=== PATIENT | male | born 1995 | race Caucasian/White ===

== ENCOUNTER 2021-05-21 20:03 | Emergency (ER) | payer BC, MEDICAID ==
[~2021-05-21] VITALS: Ht 193 cm; Wt 127.0 kg
[~2021-05-21 20:03] MED LIST: ONDA4TAB12 PO; SODI30SP3 BOTHNARES
[2021-05-21] MEDS ORDERED: IBUP-1984 PO (21:40)
[2021-05-21] MEDS ORDERED: penicillin V potassium 500mg tablet PO ONE (21:40)
[2021-05-21] MEDS ORDERED: ketorolac tromethamine 15mg/ml inj. IM ONE (21:40)
[2021-05-21] MEDS ORDERED: PENI500T2 PO (21:40)
[2021-05-21 21:59] VITALS: BP 142/96
== END 2021-05-21 22:01 | disposition home or self-care (01) ==
LOC: ER 20:04
DX: K08.89 Other specified disorders of teeth and supporting structures (principal); F12.90 Cannabis use, unspecified, uncomplicated; Z87.442 Personal history of urinary calculi; Z72.89 Other problems related to lifestyle; Z79.2 Long term (current) use of antibiotics; Z79.899 Other long term (current) drug therapy
CPT/HCPCS: 96372; 99283; J1885

== ENCOUNTER 2022-05-22 17:16 | Emergency (ER) | payer MEDICAID ==
[~2022-05-22] VITALS: Ht 190.5 cm; Wt 122.7 kg
[2022-05-22 17:35] VITALS: BP 139/113
== END 2022-05-23 00:40 | disposition left against medical advice (07) ==
LOC: ER 17:17
DX: R45.851 Suicidal ideations (principal); Z53.21 Procedure and treatment not carried out due to patient leaving prior to being seen by health care provider
CPT/HCPCS: A6449

== ENCOUNTER 2023-03-20 11:32 | Inpatient (IN) | payer MEDICAID ==
[~2023-03-20] VITALS: Ht 190.5 cm; Wt 127.3 kg
[~2023-03-20 11:32] MED LIST changes: +BUPR-317 PO; +LORA-269 PO; -ONDA4TAB12 PO; -SODI30SP3 BOTHNARES
--- NOTE | 2023-03-20 12:56 | NUR ---
patient sitting quietly in room, was able to given urine sample, compliant with care, no distress noted.
[2023-03-20 13:24] LABS: URINE AMPHETAMINE SCREEN NEGATIVE (Neg); URINE BARBITUATE SCREEN NEGATIVE (Neg); URINE BENZODIAZEPINES SCREEN NEGATIVE (Neg); URINE CANNABINOID SCREEN NEGATIVE (Neg); URINE COCAINE SCREEN NEGATIVE (Neg); URINE METHADONE SCREEN NEGATIVE (Neg); URINE OPIATE SCREEN NEGATIVE (Neg); URINE PHENCYCLIDINE SCREEN NEGATIVE (Neg)
--- NOTE | 2023-03-20 13:40 | NUR ---
patient compliant with care, resting quietly in bed, no distress noted.
[2023-03-20 13:51] LABS: BASOPHILS % (AUTO) 0.3 % (0-1); EOSINOPHILS # (AUTO) 0.1 X10'3 (0-0.9); EOSINOPHILS % (AUTO) 1.6 % (0-6); HEMOGLOBIN 16.2 g/dl (14.0-17.9); LYMPHOCYTES # (AUTO) 1.8 X10'3 (1.1-4.8); LYMPHOCYTES % (AUTO) 23.6 % (21-51); MEAN CORPUSCULAR HEMOGLOBIN 29.2 PG (27.0-31.0); MEAN CORPUSCULAR HGB CONC 33.6 g/dL (33.0-36.5); MEAN CORPUSCULAR VOLUME 86.8 FL (78-98); MEAN PLATELET VOLUME 9.9 FL (7.4-10.4); MONOCYTES # (AUTO) 0.5 X10'3 (0-0.9); MONOCYTES % (AUTO) 7.1 % (2-12); NEUTROPHILS # (AUTO) 5.1 X10'3 (1.8-7.7); NEUTROPHILS % (AUTO) 67.4 % (42-75); PLATELET COUNT 259 X10'3 (140-440); RED BLOOD COUNT 5.53 X10'6 (4.70-6.10); RED CELL DISTRIBUTION WIDTH 14.2 % (11.5-14.5); WHITE BLOOD COUNT 7.6 X10'3 (4.5-11.0)
[2023-03-20 14:08] LABS: CLARITY,URINE CLOUDY (Clear); COLOR,URINE YELLOW (Yellow); GLUCOSE, URINE NEGATIVE (Neg); KETONES,URINE NEGATIVE (Neg); LEUKOCYTE ESTERASE ,URINE MODERATE (Neg); NITRITES, URINE POSITIVE (Neg); OCCULT BLOOD,URINE TRACE-INTACT (Neg); PROTEIN,URINE TRACE mg/dl (Neg); UROBILINOGEN,URINE 0.2 E.U/dL (0.2-1.0)
[2023-03-20 14:09] LABS: UA COLLECTION TYPE CLN CATCH MIDSTREAM
[2023-03-20 14:17] LABS: WBC,URINE TNTC /HPF (0-4)
[2023-03-20 14:18] LABS: MUCUS STRANDS MODERATE /LPF (Neg); TRANSITIONAL EPI CELLS,URINE FEW /HPF; WBC CLUMPS,URINE FEW /HPF (NEGATIVE)
[2023-03-20 14:19] LABS: BACTERIA,URINE FEW /HPF (Neg); SQUAMOUS EPITHELIAL CELL,UR MODERATE /LPF (FEW)
[2023-03-20 14:39] LABS: ALANINE AMINOTRANSFERASE 109 U/L (12-78); ALBUMIN 4.1 G/DL (3.4-5.0); ALKALINE PHOSPHATASE 80 IU/L (46-116); ANION GAP 9 (8-16); ASPARTATE AMINO TRANSFERASE 58 U/L (10-37); BILIRUBIN,TOTAL 0.4 MG/DL (0.1-1.0); BLOOD UREA NITROGEN 10 MG/DL (7-18); BUN/CREATININE RATIO 9.4 (10.0-20.0); CALCIUM 9.3 MG/DL (8.5-10.1); CHLORIDE 103 MMOL/L (99-107); CREATININE 1.06 MG/DL (0.60-1.10); ETHANOL < 0.010 GM/DL (0.0-0.010); GLUCOSE 93 MG/DL (70-104); SODIUM 139 MMOL/L (135-145); TOTAL CARBON DIOXIDE 27.4 MMOL/L (24-32); TOTAL PROTEIN 8.3 G/DL (6.4-8.2); eGFR 84 ML/MIN
[2023-03-20] MEDS ORDERED: FOSFOMYCIN TROMETHAMINE 3 GM PACKET PO ONE (14:45)
--- NOTE | 2023-03-20 14:45 | NUR ---
patient laying in bed resting quietly, no distress noted.
--- NOTE | 2023-03-20 15:00 | NUR ---
princess sent pt packet to [facility]
--- NOTE | 2023-03-20 15:33 | NUR ---
Note lakhwinder in [facility] - 03/20/23 at 1701 by JOSH Patient is discharged to [facility]. Patient is escorted by Graham Otoole RN and security. Patient compliant with care.
--- NOTE | 2023-03-20 16:01 | NUR ---
Patient received to bed 26. No s/s of distress. Patient has complaints of nasal swelling, given NACL syringe to rinse sinuses. Pt. denies current SI and plan. Thought processes are linear.
[2023-03-20] MEDS ORDERED: NO HOME MEDS PO (16:20)
[2023-03-20] MEDS ORDERED: NO HOME MEDS (16:37)
--- NOTE | 2023-03-20 17:43 | NUR ---
Patient sitting crossed legged on bed. Patient states that his sinuses are bothering him. Patient states that he is bored. T.V. turned on for patient, and patient is satisfied.
--- NOTE | 2023-03-20 19:11 | NUR ---
Client to be admitted to [facility] for SI/Self injury per ANN Teague/Judson Galicia MD. Client is admitted to #[id number].
--- NOTE | 2023-03-20 19:32 | NUR ---
one to one with the patient to assess severity of depressive symptoms and self harm risk. The patient is very depressed and stated he was first diagnoised with depression at age 9. He currently is not on any medications. He denies psychotic symptoms. He is reporting significant nasal congestion and uses Afrin at home and reports that Flonase has not helped in the past.
[2023-03-20] MEDS: oxymetazoline 15 ML nasal spray NS SCH ×2 (19:41→19:57)
--- NOTE | 2023-03-20 20:39 | NUR ---
The patient has been quietly watching TV. His father came in briefly to visit. The patient is waiting to be transferred to [facility]
--- NOTE | 2023-03-20 20:44 | NUR ---
Patient's father came and requested to visit. Registration was told he could come back for 15 minutes and no outside food or drinks or cell phones were allowed. The visitor came back with a plastic back with food and sodas and he was told that he would have to leave the bag behind the nursing station. He was irritable and rude. As he left he called staff "yoni car" and requested to have staff's names. He left the unit without any further incidence.
[2023-03-20 21:42] VITALS: BP 148/101; PULSE 71; RESP 16; TEMP 98.1; O2SAT 99
[2023-03-20 22:00] VITALS: RESP 16; O2SAT 99
[2023-03-20] MEDS ORDERED: magnesium hydroxide 30ml (MOM) UD suspension PO PRN (22:05)
[2023-03-20] MEDS ORDERED: acetaminophen 325mg tablet PO PRN ×2 (22:05)
[2023-03-20] MEDS ORDERED: mag hydrox/Alum hydrox/simeth 30ml oral suspension PO PRN (22:05)
[2023-03-20] MEDS ORDERED: NICOTINE POLACRILEX 2 MG LOZENGE BC PRN (22:05)
[2023-03-20] MEDS ORDERED: loperamide 2mg capsule PO PRN (22:05)
[2023-03-21] VITALS (7 sets, daily range): BP systolic 138–154; BP diastolic 89–110; PULSE 80–94; RESP 14–16; TEMP 97.4–98.3; O2SAT 98–100
[2023-03-21] MEDS ORDERED: OXYM30SP26 BOTHNARES (00:52)
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
[2023-03-21] MEDS: Melatonin 3mg tablet PO SCH ×2 (01:53→21:15)
--- NOTE | 2023-03-21 03:25 | NUR ---
Elevated blood pressure noted. Upon admission- BP 148/101. Around 0200- 154/108 (manual) then 0335- 150/110 noted . Patient denies s/sx. Will continue to monitor.
--- NOTE | 2023-03-21 05:50 | NUR ---
Patient reports that he relies on nasal spray to breath and asked if he can have it. Called Josep Polanco regarding patient's elevated sustained blood pressure over night as well as to ask him about nasal spray order. Received orders for lisinopril 10 mg daily (okay to give now), Claritin and Flonase.
[2023-03-21] MEDS: loratadine 10mg tablet PO SCH (06:11)
[2023-03-21] MEDS: lisinopril 10 MG tablet PO SCH ×2 (06:11→06:16)
[2023-03-21 07:45] LABS: HEMOGLOBIN A1C 5.5 % (4.5-6.2)
[2023-03-21] MEDS ORDERED: nicotine 21mg patch - 24 hr TD SCH (08:00)
[2023-03-21] MEDS: oxymetazoline 15 ML nasal spray NS SCH ×2 (08:00→21:15)
[2023-03-21] MEDS: fluticasone nasal spray 16GM bottle NS SCH (08:09)
[2023-03-21 08:20] LABS: CHOL/HDL RATIO 4.9 (0.00-4.99); CHOLESTEROL 224 MG/DL (0-200); HDL CHOLESTEROL 46 MG/DL (35-60); LDL CHOLESTEROL 159 MG/DL (50-100); TRIGLYCERIDES 86 MG/DL (20-135)
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
--- NOTE | 2023-03-22 04:11 | NUR ---
Nursing Progress Note: Problem: [facility] clinician as patient was wanting to sign himself in r/t having thoughts of SI without plan. Was seen by therapist yesterday and admitted to having self-harm behaviors including hitting his head with a 2x4, wrapping belt around his neck, and placing plastic bag around his head. Behaviors triggered by Friday's events surrounding the stress of unemployment as he missed his job interview. Per 5150 "You stated that you had a mental breakdown, and wanted to kill yourself. Interventions: 1:1 assessment, therapeutic conversation, active listening, ensured contract for safety, medication administration/education/monitoring, provided distraction redirection, positive reinforcement, and Q15 minute safety checks. Response: Upon arrival to shift noted patient sitting in dining room eating his meal. Noted to be withdrawn. No socializing seen with cohort. Isolates to room after dinner. Wearing clean green scrubs with disheveled hair and glasses. Pleasant, calm and cooperative with a depressed mood. During 1:1 assessment patient asked nurse about new med he was placed on today. Made him aware the Prozac will start tomorrow am. Noted BP reading has improved with help of Lisinopril. Good eye contact given during 1:1. Denies SI and any other MH s/sx. Appears to be less anxious and more settled this shift. Compliant with HS meds. No PRNs given this shift Plan: Establish plan for discharge and stabilize on medications.
[2023-03-22 07:00] VITALS: RESP 16; O2SAT 99
[2023-03-22 08:00] VITALS: BP 142/86; PULSE 71; RESP 16; TEMP 98.2; O2SAT 100
[2023-03-22] MEDS: FLUoxetine 20mg capsule PO SCH (08:15)
[2023-03-22] MEDS: loratadine 10mg tablet PO SCH (08:15)
[2023-03-22] MEDS: lisinopril 10 MG tablet PO SCH (08:15)
[2023-03-22] MEDS: oxymetazoline 15 ML nasal spray NS SCH ×2 (08:16→20:00)
[2023-03-22] MEDS: fluticasone nasal spray 16GM bottle NS SCH (08:16)
[2023-03-22 15:12] LABS: CLARITY,URINE SLIGHTLY CLOUDY (Clear); COLOR,URINE YELLOW (Yellow); GLUCOSE, URINE NEGATIVE (Neg); KETONES,URINE NEGATIVE (Neg); LEUKOCYTE ESTERASE ,URINE SMALL (Neg); NITRITES, URINE NEGATIVE (Neg); OCCULT BLOOD,URINE TRACE-INTACT (Neg); PH,URINE 6.5 (4.8-8.0); PROTEIN,URINE NEGATIVE (Neg)
[2023-03-22 15:19] LABS: UA COLLECTION TYPE NON-SPECIFIED
[2023-03-22 15:20] LABS: RBC,URINE 0-2 /HPF (0-2); WBC,URINE 30-50 /HPF (0-4)
[2023-03-22 15:21] LABS: BACTERIA,URINE FEW /HPF (Neg); MUCUS STRANDS FEW /LPF (Neg); SQUAMOUS EPITHELIAL CELL,UR MODERATE /LPF (FEW)
--- NOTE | 2023-03-22 17:26 | NUR ---
Nursing Progress Note: Problem: [facility] clinician as patient was wanting to sign himself in r/t having thoughts of SI without plan. Was seen by therapist yesterday and admitted to having self-harm behaviors including hitting his head with a 2x4, wrapping belt around his neck, and placing plastic bag around his head. Behaviors triggered by Friday's events surrounding the stress of unemployment as he missed his job interview. Per 5150 "You stated that you had a mental breakdown, and wanted to kill yourself. Interventions: 1:1 assessment, therapeutic conversation, active listening, ensured contract for safety, medication administration/education/monitoring, provided distraction redirection, positive reinforcement, and Q15 minute safety checks. Response: Patient was observed on his bed at start of shift. He lay there until breakfast when he came to the dining room to eat. He was compliant with medications, including new order for Prozac. Patient reports his mental breakdown occurs when he has numerous stressors coming at him and he cant deal with them fast enough. I get so frustrated and become fully unable to deal with it, that I either lash out at others or myself. He continues to say, Im usually passive and hard to anger, but sometimes its too much. Patient denies SI and reports his depression is much better. Plan: Establish plan for discharge and stabilize on medications
[2023-03-22 19:00] VITALS: RESP 16; O2SAT 98
[2023-03-22 19:38] VITALS: BP 132/75; PULSE 86; RESP 16; TEMP 98; O2SAT 98
[2023-03-22] MEDS: Melatonin 3mg tablet PO SCH (21:27)
--- NOTE | 2023-03-23 02:48 | NUR ---
Nursing Progress Note: [facility] as patient was wanting to sign himself in r/t having thoughts of SI without plan. Was seen by therapist yesterday and admitted to having self-harm behaviors including hitting his head with a 2x4, wrapping belt around his neck, and placing plastic bag around his head. Behaviors triggered by Friday's events surrounding the stress of unemployment as he missed his job interview. Per 5150 "You stated that you had a mental breakdown, and wanted to kill yourself. Interventions: 1:1 assessment, therapeutic conversation, active listening, ensured contract for safety, medication administration/education/monitoring, provided distraction redirection, positive reinforcement, and Q15 minute safety checks. Response: The patient was observed in the community room following shift change. Patient is quiet and watching television. 1:1 Interview in the community room. The patient is well oriented and cooperative. Patient was given PRN Atarax for his anxiety with good result. Trazadone was given for sleep. Plan: Establish plan for discharge and stabilize on medications Addendum: 03/23/23 at 0446 by Yobany Goff RN Wrong patient, please ignore this note.
--- NOTE | 2023-03-23 04:16 | NUR ---
Nursing Progress Note: Problem: [facility] clinician as patient was wanting to sign himself in r/t having thoughts of SI without plan. Was seen by therapist yesterday and admitted to having self-harm behaviors including hitting his head with a 2x4, wrapping belt around his neck, and placing plastic bag around his head. Behaviors triggered by Friday's events surrounding the stress of unemployment as he missed his job interview. Per 5150 "You stated that you had a mental breakdown, and wanted to kill yourself. Interventions: 1:1 assessment, therapeutic conversation, active listening, ensured contract for safety, medication administration/education/monitoring, provided distraction redirection, positive reinforcement, and Q15 minute safety checks. Response: The patient sits in the community room following shift change. He was interviewed 1:1 in the community room. Patient speaks quietly and is cooperative. He denies S/I, H/I, or any hallucinations. He presents as well orient and polite. The patient is compliant with medications. Patient states he is feeling good tonight. Plan: Establish plan for discharge and stabilize on medications
--- NOTE | 2023-03-23 04:46 | NUR ---
Ignore 0248 hour note. Wrong patient.
[2023-03-23 07:00] VITALS: RESP 16; O2SAT 98
[2023-03-23 07:20] VITALS: BP 126/88; PULSE 76; RESP 16; TEMP 97.8; O2SAT 98
[2023-03-23] MEDS: fluticasone nasal spray 16GM bottle NS SCH (08:19)
[2023-03-23] MEDS: loratadine 10mg tablet PO SCH (08:20)
[2023-03-23] MEDS: FLUoxetine 20mg capsule PO SCH (08:20)
[2023-03-23] MEDS: oxymetazoline 15 ML nasal spray NS SCH ×2 (08:20→21:23)
[2023-03-23] MEDS: lisinopril 10 MG tablet PO SCH (08:20)
--- NOTE | 2023-03-23 15:51 | NUR ---
Nursing Progress Note: Problem: [facility] clinician as patient was wanting to sign himself in r/t having thoughts of SI without plan. Was seen by therapist yesterday and admitted to having self-harm behaviors including hitting his head with a 2x4, wrapping belt around his neck, and placing plastic bag around his head. Behaviors triggered by Friday's events surrounding the stress of unemployment as he missed his job interview. Per 5150 "You stated that you had a mental breakdown, and wanted to kill yourself. Interventions: 1:1 assessment, therapeutic conversation, active listening, ensured contract for safety, medication administration/education/monitoring, provided distraction redirection, positive reinforcement, and Q15 minute safety checks. Response: Pt in bed at change of shift. Met with RN for 1:1 assessment at the bedside after breakfast. Presents with a constricted affect, fair eye contact. Compliant with medications and denies any AEs. Reports that his mood is fine, denies S/I and thoughts of self harm. Reports that he slept ok, but that the beds are uncomfortable. Spends much of the day in the group room watching TV with peers. Plan: Changed to voluntary status today; Provider is titrating medication and considering a mood stabilizer
[2023-03-23 19:00] VITALS: RESP 18; O2SAT 98
[2023-03-23 19:49] VITALS: BP 147/85; PULSE 88; RESP 18; TEMP 98; O2SAT 98
[2023-03-23] MEDS: Melatonin 3mg tablet PO SCH (21:22)
--- NOTE | 2023-03-24 01:25 | NUR ---
Nursing Progress Note: Problem: [facility] clinician as patient was wanting to sign himself in r/t having thoughts of SI without plan. Was seen by therapist yesterday and admitted to having self-harm behaviors including hitting his head with a 2x4, wrapping belt around his neck, and placing plastic bag around his head. Behaviors triggered by Friday's events surrounding the stress of unemployment as he missed his job interview. Per 5150 "You stated that you had a mental breakdown, and wanted to kill yourself. Interventions: 1:1 assessment, therapeutic conversation, active listening, ensured contract for safety, medication administration/education/monitoring, provided distraction redirection, positive reinforcement, and Q15 minute safety checks. Response: Pt. sleeping in bed at change of shift. He awaken for VS and afterwards went into the community room and spent time watching TV. He is quiet, pleasant and cooperative. Pt. sat quietly in the community room and participated in evening snack. Pt. denies SI/HI/AH/VH Pt. took night medications without issue . Pt. is observed and appears to be sleeping without difficulty. Plan: Changed to voluntary status today; Provider is titrating medication and considering a mood stabilizer
[2023-03-24 07:00] VITALS: RESP 18; O2SAT 97
[2023-03-24 07:23] VITALS: BP 110/81; PULSE 81; RESP 18; TEMP 97.6; O2SAT 97
[2023-03-24] MEDS: oxymetazoline 15 ML nasal spray NS SCH (08:00)
[2023-03-24] MEDS: FLUoxetine 20mg capsule PO SCH (08:06)
[2023-03-24 08:07] VITALS: BP_SYST 110; PULSE 81
[2023-03-24] MEDS: loratadine 10mg tablet PO SCH (08:07)
[2023-03-24] MEDS: lisinopril 10 MG tablet PO SCH (08:07)
[2023-03-24] MEDS: fluticasone nasal spray 16GM bottle NS SCH (08:07)
--- NOTE | 2023-03-24 09:33 | NUR ---
Initial: Pt admit DX severe depression, UTI, and HTN per EMR. PO ~94% avg regular diet up to 100% past 5 meals w/ occasional snacks meeting estimated needs. Noted allergy to all fruits without severity or specifics in EMR; RD d/w RN regarding more specifics. Per RN, probably dislikes but to acquire more details. LBM 03/23 per EMR. No nutrition interventions at this time. Will continue to follow. Rec: 1. continue regular diet; no milk to drink per order 2. adjust food preferences following clarification of allergy to all fruits in EMR; highly unlikely 3. bowel care per rx 4. weekly wt Addendum: 03/24/23 at [address] Amended: Links added.
[2023-03-24] MEDS ORDERED: LORA10TA65 PO (10:04)
[2023-03-24] MEDS ORDERED: LISI10TA27 PO (10:04)
[2023-03-24] MEDS ORDERED: FLUO20CA46 PO (10:04)
[2023-03-24] MEDS ORDERED: FLUT16SP NS (10:04)
[2023-03-24] MEDS ORDERED: NICO-907 BC (10:04)
--- NOTE | 2023-03-24 12:20 | NUR ---
DISCHARGE NOTE Pt discharged home, picked up by his mother at 1220, escorted to the lobby by this RN. Pt expresses readiness for discharge and is future oriented. A&Ox4. Denies S/I. Verbalizes understanding of discharge instructions and follow up care. Belongings inventoried and returned to patient.
== END 2023-03-24 12:20 | disposition home or self-care (01) | DRG 751 ==
LOC: ER 11:32 → ADULT MH 22:01
PROVIDERS: ADMIT Psychiatry & Neurology Psychiatry; ATTEND Psychiatry & Neurology Psychiatry
DX: F33.2 Major depressive disorder, recurrent severe without psychotic features (principal); R45.851 Suicidal ideations; I10 Essential (primary) hypertension; N39.0 Urinary tract infection, site not specified; F41.9 Anxiety disorder, unspecified; F90.9 Attention-deficit hyperactivity disorder, unspecified type; E66.3 Overweight; Z20.822 Contact with and (suspected) exposure to COVID-19; Z68.35 Body mass index [BMI] 35.0-35.9, adult; Z79.899 Other long term (current) drug therapy; Z81.8 Family history of other mental and behavioral disorders; Z87.442 Personal history of urinary calculi; Z91.018 Allergy to other foods; Z56.0 Unemployment, unspecified; Z91.51 Personal history of suicidal behavior
CPT/HCPCS: 36415; 80053; 80061; 80305; 80320; 81001; 83036; 85025; 87081; 87088; 87811; 99285; J7030